=== PATIENT | female | born 1955 | race Caucasian/White ===

== ENCOUNTER 2016-10-04 17:42 | Emergency (ER) | payer OTHER ==
[~2016-10-04] VITALS: Ht 160 cm; Wt 63.5 kg
[~2016-10-04 17:42] MED LIST: FLEXERIL PO; NOHOMEMEDICATIONS; NORCO 5-325 TA1 EACH PO; PENICILLIN V P500 MG PO; SEROQUEL 25 MG25 M1 PO; VICODIN 5-5001 EACH PO; XANAX; XANAX XR2 MG PO
[2016-10-04 18:28] LABS: HEMATOCRIT 46.5 % (37.0-47.0); HEMOGLOBIN 16.5 gm/dL (12.0-15.0); MCH 28.6 pg (26.0-34.0); MCHC 35.4 % (28.0-37.0); MCV 80.9 fL (80.0-100.0); PLATELET COUNT 301 thou/uL (150-400); RBC 5.75 mil/uL (4.20-5.00); RDW 16.7 % (10.5-14.5); WBC 7.6 thou/uL (4.0-11.0)
[2016-10-04 18:30] LABS: MANUAL DIFF YES
[2016-10-04 18:42] LABS: ABSOLUTE NEUTROPHILS 4.9 thou/uL (1.4-8.2); TOTAL CELL COUNT 100
[2016-10-04 18:43] LABS: ANISOCYTOSIS 1+
[2016-10-04 20:34] LABS: CALCIUM 8.9 mg/dL (8.5-10.1)
[2016-10-04 20:41] LABS: ALBUMIN 3.2 g/dL (3.4-5.0); TOTAL BILIRUBIN 0.3 mg/dL (<0.1-1.0); TOTAL PROTEIN 7.8 g/dL (6.4-8.2)
[2016-10-04 21:12] VITALS: BP 131/81
== END 2016-10-04 21:13 | disposition home or self-care (01) ==
LOC: ER 17:42
PROVIDERS: Physician Assistant
DX: E86.0 Dehydration (principal); R19.7 Diarrhea, unspecified; E53.1 Pyridoxine deficiency; E87.2 Acidosis; Z88.5 Allergy status to narcotic agent

== ENCOUNTER 2017-01-10 02:11 | Emergency (ER) | payer OTHER ==
[~2017-01-10] VITALS: Ht 160 cm; Wt 68.0 kg
[2017-01-10 02:13] VITALS: BP 161/87
[2017-01-10] MEDS ORDERED: PREDNISONE 20 M20 M1 PO (02:36)
== END 2017-01-10 02:50 | disposition home or self-care (01) ==
LOC: ER 02:11
DX: L23.7 Allergic contact dermatitis due to plants, except food (principal); F12.10 Cannabis abuse, uncomplicated; Z88.5 Allergy status to narcotic agent

== ENCOUNTER 2017-05-04 19:17 | Emergency (ER) | payer OTHER | END 2017-05-04 21:41 | disposition home or self-care (01) | LOC: ER 19:17 | DX: H66.91 Otitis media, unspecified, right ear (principal); F15.10 Other stimulant abuse, uncomplicated; Z88.5 Allergy status to narcotic agent ==

== ENCOUNTER 2017-11-15 18:02 | Emergency (ER) | payer OTHER ==
[~2017-11-15] VITALS: Ht 162.6 cm; Wt 61.2 kg
[~2017-11-15 18:02] MED LIST changes: +AMOXICILLIN 50500 M1 PO; +PREDNISONE 20 M20 M1 PO; +TRAMADOL 50 MG50 MG PO
[2017-11-15 18:03] VITALS: BP 151/82
== END 2017-11-15 19:10 | disposition left against medical advice (07) ==
LOC: ER 18:02
DX: M25.532 Pain in left wrist (principal); Z88.6 Allergy status to analgesic agent

== ENCOUNTER 2017-11-15 19:40 | Emergency (ER) | payer OTHER ==
[~2017-11-15] VITALS: Ht 160 cm; Wt 63.5 kg
[2017-11-15 19:54] VITALS: BP 156/83
== END 2017-11-15 20:56 | disposition home or self-care (01) ==
LOC: ER 19:40
DX: M25.532 Pain in left wrist (principal); Z88.6 Allergy status to analgesic agent

== ENCOUNTER 2018-12-07 16:21 | Emergency (ER) | payer OTHER ==
[~2018-12-07] VITALS: Ht 160 cm; Wt 65.8 kg
[2018-12-07] MEDS ORDERED: ACYCLOVIR 400400 MG PO (17:45)
[2018-12-07 18:01] VITALS: BP 124/76
== END 2018-12-07 18:01 | disposition home or self-care (01) ==
LOC: ER 16:21
DX: B00.89 Other herpesviral infection (principal); Z88.5 Allergy status to narcotic agent

== ENCOUNTER 2019-06-12 10:58 | Emergency (ER) | payer OTHER ==
[~2019-06-12] VITALS: Ht 160 cm; Wt 63.5 kg
[~2019-06-12 10:58] MED LIST changes: +ACYCLOVIR 400400 MG PO
[2019-06-12] MEDS ORDERED: XANAX1 MG PO (11:16)
[2019-06-12] MEDS ORDERED: MOBIC15 MG PO (12:00)
[2019-06-12 12:18] VITALS: BP 138/64
== END 2019-06-12 12:27 | disposition home or self-care (01) ==
LOC: ER 10:58
DX: S46.911A Strain of unspecified muscle, fascia and tendon at shoulder and upper arm level, right arm, initial encounter (principal); Z88.6 Allergy status to analgesic agent; W01.0XXA Fall on same level from slipping, tripping and stumbling without subsequent striking against object, initial encounter; Y93.89 Activity, other specified; Y92.098 Other place in other non-institutional residence as the place of occurrence of the external cause; Y99.8 Other external cause status

== ENCOUNTER 2019-08-24 17:06 | Inpatient (IN) | payer OTHER ==
[~2019-08-24] VITALS: Ht 160 cm; Wt 63.5 kg
[~2019-08-24 17:06] MED LIST changes: +MOBIC15 MG PO; +XANAX1 MG PO
[2019-08-24 17:14] VITALS: BP 115/70
[2019-08-24 19:13] LABS: CALCIUM 9.8 mg/dL (8.5-10.1); CREATININE 0.8 mg/dL (0.6-1.0); POTASSIUM 4.5 mmol/L (3.5-5.1)
[2019-08-24 19:19] LABS: ALBUMIN 3.6 g/dL (3.4-5.0); DIRECT BILIRUBIN 0.1 mg/dL (<0.1-0.2); TOTAL BILIRUBIN 0.7 mg/dL (<0.1-1.0); TOTAL PROTEIN 8.5 g/dL (6.4-8.2)
[2019-08-24 19:37] LABS: BASOPHILS 0.6 % (0.0-2.0); EOSINOPHILS 2.9 % (0.0-3.0); LYMPHOCYTES 18.7 % (24.0-44.0); MCHC 33.3 g/dL (28.0-37.0); MCV 87.1 fL (80.0-100.0); MONOCYTES 9.2 % (1.0-8.0); PLATELET COUNT 228 thou/uL (150-400); POLYS 68.6 % (36.0-66.0); RBC 4.83 mil/uL (4.20-5.00); RDW 14.2 % (10.5-14.5); WBC 5.8 thou/uL (4.0-11.0)
[2019-08-24 21:24] VITALS: BP 128/71
[2019-08-24 21:34] VITALS: BP 146/83
[2019-08-25 00:05] VITALS: BP 142/84
--- NOTE | 2019-08-25 02:37 | NUR ---
ASSUMED CARE OF PT AT 2200HRS. PT IS AOX4 AND LETS NEEDS BE KNOWN. PT HAS A STEADY GAIT. PT WAS ORIENTED TO THE UNIT AND THE ROOM. PT WAS ABLE TO ANSWER ALL ADMISSION RELATED QUESTIONS. ROMAN GERMAIN VISITED THE PT. ORDERS RECEIVED AND STARTED. PT REPORTED SOME PAIN BUT DENIED NAUSEA. PT WAS ABLE TO GET COMFORTABLE AND SLEEP PART OF THE SHIFT. VSS AND NO S/S OF ACUTE DISTRESS. WILL CONTINUE TO MONITOR.
[2019-08-25 04:35] VITALS: BP 148/79
[2019-08-25 05:52] LABS: HEMATOCRIT 40.2 % (37.0-47.0); HEMOGLOBIN 13.1 gm/dL (12.0-15.0); MCH 28.5 pg (26.0-34.0); MCHC 32.6 g/dL (28.0-37.0); MCV 87.7 fL (80.0-100.0); RBC 4.59 mil/uL (4.20-5.00); RDW 13.9 % (10.5-14.5); WBC 5.1 thou/uL (4.0-11.0)
[2019-08-25 06:29] LABS: ALBUMIN 3.2 g/dL (3.4-5.0); CREATININE 0.7 mg/dL (0.6-1.0); POTASSIUM 3.9 mmol/L (3.5-5.1); TOTAL BILIRUBIN 0.6 mg/dL (<0.1-1.0); TOTAL PROTEIN 7.2 g/dL (6.4-8.2)
[2019-08-25 08:29] VITALS: BP 124/79
--- NOTE | 2019-08-25 10:08 | NUR ---
INITIAL ASSESSMENT: Pt evaluated for d/c planning needs. Reviewed chart and spoke with nurse and pt. Pt is alert and oriented. Pt states she alone in house and was independent with ADL's prior to admission to the hospital. Pt said she has no DME and has not had home health in the past. Pt plans on returning home on d/c from hospital. Will remain available to assist as needed.
--- NOTE | 2019-08-25 11:35 | NUR ---
PT RESTING IN BED ALERT XS 3-4. NO PAIN OR RESP DISTRESS. HAS CONSULT WITH DR GAGAN JOHANSEN ENT HE WILL BE HERE AT 1600 OR LATER THIS EVENING. PT HAS L FA IV THAT WAS PLACED BY IV NURSE. FLU VACCINE GIVEN TO PATIENT.
[2019-08-25 11:50] VITALS: BP 128/87
--- NOTE | 2019-08-25 12:25 | NUR ---
PT ASSUMED CARE OF PT AT 1200 NOON. PT AOX4, REPORTS DISCOMFORT IN HER RIGHT EAR. WAITING FOR ENT CONSULT THIS EVENING. PT VSS, FALL PRECAUTIONS IN PLACE. CALL LIGHT/PERSONAL BELONGING IN REACH. WILL GIVE PO PAIN ANALGESIC ORDERED.
[2019-08-25 14:25] VITALS: BP 128/80
[2019-08-25 19:58] VITALS: BP 126/73
--- NOTE | 2019-08-26 03:20 | NUR ---
ASSUMED CARE OF PATIENT AT SHIFT CHANGE. ASSESSMENT CHARTED. MEDICATIONS GIVEN PER NOV. PRN PAIN MED GIVEN FOR EAR/HEAD PAIN REPORTED 06/17. VSS, O2 SATS WNL ON RA. PATIENT IS A&OX4, AMBULATES W/O ASSIATANCE AND IS STEADY. APPETITE IS ADEQUATE, URINE OUTPUT IS ADEQUATE, DENIES GI CONCERNS. PATIENT WAS SEEN BY ENT AND IS CONTINUING ANTIBIOTICS. PATIENT DID STATE HURTING HER R HIP A COUPLE OF WEEKS AGO WHILE LIFTING SOMETHING. PAIN IS BEING MONITORED. PATIENT CALLS OUT APPROPRIATELY. WILL CONTINUE TO MONITOR AND FOLLOW POC
[2019-08-26 07:25] VITALS: BP 138/72
[2019-08-26] MEDS ORDERED: OFLOXACIN5 M1 RT. EAR (09:35)
[2019-08-26] MEDS ORDERED: CEFUROXIME500 MG PO (09:35)
[2019-08-26] MEDS ORDERED: TRAMADOL 50 MG50 MG PO (09:35)
[2019-08-26] MEDS ORDERED: AUGMENTIN 875-1 EACH PO (09:49)
--- NOTE | 2019-08-26 13:49 | NUR ---
DISCHARGE NOTE: SW reviewed chart and spoke with nursing and attending physician. Pt was transferred to [facility] from and is medically stable for discharge home today. Pt needing transportation home and go home via cab. SW met with pt at bedside to discuss discharge plan. Confirmed pt's home address with pt. Voucher # [id number] provided to pt's nurse to arrange ride when pt is ready for discharge. No additional SW needs identified at this time, but is available to assist should needs arise.
[2019-08-26 14:03] VITALS: BP 138/72
== END 2019-08-26 14:46 | disposition home or self-care (01) | DRG 155 ==
LOC: ER 17:06 → 4S 20:51 → EROBS 20:51 → 4N 21:50 → 4S 21:57 → 4N 08-25 12:02 → ENTRNSPT 08-26 14:26 → EDTRNSPTSTS 08-26 14:28 → 4N 08-26 14:46
PROVIDERS: Nurse Practitioner; ADMIT Hospitalist
DX: H72.91 Unspecified perforation of tympanic membrane, right ear (principal); G40.509 Epileptic seizures related to external causes, not intractable, without status epilepticus; H70.91 Unspecified mastoiditis, right ear; H54.61 Unqualified visual loss, right eye, normal vision left eye; F10.10 Alcohol abuse, uncomplicated; F41.9 Anxiety disorder, unspecified; G89.29 Other chronic pain; Z88.6 Allergy status to analgesic agent; Z79.899 Other long term (current) drug therapy
CPT/HCPCS: 10091; 10100

== ENCOUNTER 2019-12-24 10:11 | Emergency (ER) | payer OTHER ==
[~2019-12-24] VITALS: Ht 160 cm; Wt 63.5 kg
[~2019-12-24 10:11] MED LIST changes: +AUGMENTIN 875-1 EACH PO; +CEFUROXIME500 MG PO; +OFLOXACIN5 M1 RT. EAR
[2019-12-24 10:22] VITALS: BP 147/74
[2019-12-24] MEDS ORDERED: LISINOPRIL20 MG PO ×2 (10:41→11:00)
[2019-12-24] MEDS ORDERED: MOBIC7.5 MG PO (11:00)
[2019-12-24] MEDS ORDERED: ALPRAZOLAM1 MG PO (11:00)
[2019-12-24] MEDS ORDERED: CELEXA 20 MG TA20 MG PO (11:00)
== END 2019-12-24 11:07 | disposition home or self-care (01) ==
LOC: ER 10:11
DX: F41.9 Anxiety disorder, unspecified (principal); Z76.0 Encounter for issue of repeat prescription; Z79.899 Other long term (current) drug therapy; Z88.6 Allergy status to analgesic agent

== ENCOUNTER 2020-01-02 18:51 | Emergency (ER) | payer OTHER ==
[~2020-01-02] VITALS: Ht 160 cm; Wt 63.5 kg
[~2020-01-02 18:51] MED LIST changes: +ALPRAZOLAM1 MG PO; +CELEXA 20 MG TA20 MG PO; +LISINOPRIL20 MG PO; +MOBIC7.5 MG PO
[2020-01-02 19:41] VITALS: BP 121/76
[2020-01-02] MEDS ORDERED: NORCO 5-325 TA1 EAC1 PO ×2 (19:47→19:49)
== END 2020-01-02 20:06 | disposition home or self-care (01) ==
LOC: ER 18:51
DX: M54.5 Low back pain (principal); M54.6 Pain in thoracic spine; Z79.899 Other long term (current) drug therapy; Z88.6 Allergy status to analgesic agent; W18.39XA Other fall on same level, initial encounter; Y93.89 Activity, other specified; Y92.89 Other specified places as the place of occurrence of the external cause; Y99.8 Other external cause status

== ENCOUNTER 2021-01-26 23:07 | Emergency (ER) | payer OTHER ==
[~2021-01-26] VITALS: Ht 160 cm; Wt 63.5 kg
[~2021-01-26 23:07] MED LIST changes: +NORCO 5-325 TA1 EAC1 PO
[2021-01-26 23:09] VITALS: BP 123/74
[2021-01-27] MEDS ORDERED: CYCLOBENZAPRINE5 MG PO (00:07)
[2021-01-27] MEDS ORDERED: MOBIC15 MG PO (00:07)
== END 2021-01-27 01:24 | disposition home or self-care (01) ==
LOC: ER 23:07
DX: M54.5 Low back pain (principal); M62.830 Muscle spasm of back; M25.552 Pain in left hip; G89.29 Other chronic pain; F12.90 Cannabis use, unspecified, uncomplicated; Z88.5 Allergy status to narcotic agent; Z79.899 Other long term (current) drug therapy; V49.59XA Passenger injured in collision with other motor vehicles in traffic accident, initial encounter; Y93.89 Activity, other specified; Y92.413 State road as the place of occurrence of the external cause; Y99.9 Unspecified external cause status

== ENCOUNTER 2021-02-21 16:26 | Emergency (ER) | payer OTHER ==
[~2021-02-21] VITALS: Ht 160 cm; Wt 61.2 kg
[~2021-02-21 16:26] MED LIST changes: +CYCLOBENZAPRINE5 MG PO
[2021-02-21] MEDS ORDERED: TIZANIDINE HCL 22 M1 PO (16:51)
[2021-02-21] MEDS ORDERED: NORCO7.5 PO (19:17)
[2021-02-21] MEDS ORDERED: MEDROLDOSEPACK PO (19:17)
[2021-02-21 19:26] VITALS: BP 142/68
== END 2021-02-21 19:26 | disposition home or self-care (01) ==
LOC: ER 16:26
DX: M51.26 Other intervertebral disc displacement, lumbar region (principal); M48.061 Spinal stenosis, lumbar region without neurogenic claudication; Z88.5 Allergy status to narcotic agent; Z98.890 Other specified postprocedural states

== ENCOUNTER 2021-03-09 16:02 | Emergency (ER) | payer OTHER ==
[~2021-03-09] VITALS: Ht 160 cm; Wt 61.2 kg
[~2021-03-09 16:02] MED LIST changes: +MEDROLDOSEPACK PO; +NORCO7.5 PO; +TIZANIDINE HCL 22 M1 PO
[2021-03-09] MEDS ORDERED: NORCO7.5 PO (16:37)
[2021-03-09 16:49] VITALS: BP 133/81
== END 2021-03-09 16:50 | disposition home or self-care (01) ==
LOC: ER 16:02
DX: M25.552 Pain in left hip (principal); M54.42 Lumbago with sciatica, left side; G89.29 Other chronic pain; Z98.890 Other specified postprocedural states; Z88.5 Allergy status to narcotic agent

== ENCOUNTER 2021-06-12 14:36 | Emergency (ER) | payer OTHER ==
[~2021-06-12] VITALS: Ht 160 cm; Wt 63.5 kg
[2021-06-12] MEDS ORDERED: MOBIC15 MG PO (15:33)
[2021-06-12] MEDS ORDERED: NORCO5 PO (15:33)
[2021-06-12 15:37] VITALS: BP 155/95
== END 2021-06-12 15:37 | disposition home or self-care (01) ==
LOC: ER 14:36
DX: S43.401A Unspecified sprain of right shoulder joint, initial encounter (principal); F41.9 Anxiety disorder, unspecified; Z79.899 Other long term (current) drug therapy; Z88.5 Allergy status to narcotic agent; W18.30XA Fall on same level, unspecified, initial encounter; Y93.01 Activity, walking, marching and hiking; Y92.89 Other specified places as the place of occurrence of the external cause; Y99.8 Other external cause status

== ENCOUNTER 2021-09-12 11:51 | Emergency (ER) | payer OTHER ==
[~2021-09-12] VITALS: Ht 160 cm; Wt 63.5 kg
[~2021-09-12 11:51] MED LIST changes: +NORCO5 PO
[2021-09-12 12:53] VITALS: BP 129/77
== END 2021-09-12 15:23 | disposition left against medical advice (07) ==
LOC: ER 11:51
DX: R21 Rash and other nonspecific skin eruption (principal); Z53.21 Procedure and treatment not carried out due to patient leaving prior to being seen by health care provider

== ENCOUNTER 2021-10-01 06:30 | Emergency (ER) | payer OTHER ==
[~2021-10-01] VITALS: Ht 160 cm; Wt 63.5 kg
[2021-10-01] MEDS ORDERED: CLOTRIMAZOLE-321 GM TOP (06:58)
[2021-10-01 08:06] VITALS: BP 135/62
== END 2021-10-01 08:06 | disposition home or self-care (01) ==
LOC: ER 06:30
DX: B35.6 Tinea cruris (principal); F41.9 Anxiety disorder, unspecified; Z79.1 Long term (current) use of non-steroidal anti-inflammatories (NSAID); Z98.890 Other specified postprocedural states; Z79.891 Long term (current) use of opiate analgesic; Z79.899 Other long term (current) drug therapy; Z88.5 Allergy status to narcotic agent; Z91.09 Other allergy status, other than to drugs and biological substances